=== PATIENT | male | born 1995 | race African-American/Black ===

== ENCOUNTER 2017-02-25 18:28 | Emergency (ER) | payer OTHER ==
[~2017-02-25] VITALS: Ht 177.8 cm; Wt 77.1 kg
[2017-02-25] MEDS ORDERED: LACTATED RINGERS 1,000 ML IV ONE ×2 (18:33→19:19)
--- OUTSIDE RECORDS SUMMARY | 2017-02-25 18:36 | XMS REPORT | Continuity of Care Document ---
Author Author [facility] Organization [facility] Address Unknown Phone Unavailable Allergies Active Description Code Type Severity Reaction Onset Reported/Identified Relationship to Patient Clinical Status Yes NO NAME AVAILABLE [id number] DRUG N/A N/A Medications Problems Procedures Results Encounters ACCT No. Visit Date/Time Discharge Status Pt. Type Provider Facility Loc./Unit Complaint [id number] 09/30/2016 10:23:44 2016 23:59:59 [facility] Outpatient [facility] KZXRY [id number] 09/30/2016 10:18:32 2016 23:59:59 [facility] Outpatient [facility] KZOR
[2017-02-25 19:02] LABS: BASOPHILS % (AUTO) 0 % (0-10); EOSINOPHILS % (AUTO) 0 % (0-10); LYMPHOCYTES # (AUTO) 1.2 X 10^3 (1.0-4.0); LYMPHOCYTES % (AUTO) 5 % (12-44); MEAN CORPUSCULAR HEMOGLOBIN 28 PG (25-34); MEAN CORPUSCULAR HGB CONC 34 G/DL (32-36); MEAN CORPUSCULAR VOLUME 82 FL (80-99); MEAN PLATELET VOLUME 10.8 FL (7.4-10.4); MONOCYTES % (AUTO) 8 % (0-12); NEUTROPHILS # (AUTO) 21.1 X 10^3 (1.8-7.8); NEUTROPHILS % (AUTO) 87 % (42-75); PLATELET COUNT 248 10^3/uL (130-400); RED BLOOD COUNT 5.41 10^6/uL (4.35-5.85); RED CELL DISTRIBUTION WIDTH 12.7 % (10.0-14.5); WHITE BLOOD COUNT 24.3 10^3/uL (4.3-11.0)
--- NOTE | 2017-02-25 19:19 | ED General ---
General Chief Complaint: General Problems/Pain Stated Complaint: DEHYDRATED Nursing Triage Note: c/o persistant cramping. Onset while playing football today. Drank 3-4 16 oz sports drinks but continued to cramp and shake. Athletic staff put ice on patient to cool him down. Minor shaking noted on ER arrival. Awake, alert, and active. Nursing Sepsis Screen: No Definite Risk Source of Information: Patient Exam Limitations: No Limitations History of Present Illness Time Seen by Provider: 18:32 Initial Comments This 21-year-old young man presents to the emergency room via EMS from a college football game where he developed fairly sudden and intense diffuse muscle cramping and lightheadedness. He denies any other recent signs or symptoms of illness such as fever, cough, shortness of breath, vomiting, diarrhea, etc. He aggressively hydrated with sports drinks and water upon onset of symptoms but continued to have cramps, shaking, and ill feeling. He was also iced down by training staff. Fluids were initiated by EMS. By the time he arrived to the emergency room he was actually hypothermic with a tympanic temperature of 94.0F. He was fairly intensely shivering. He is -[place] but denies any known family or personal history of sickle cell disease or trait. Allergies and Home Medications Allergies Coded Allergies: No Known Drug Allergies (Unverified , 02/25/17) Constitutional: see HPI EENTM: no symptoms reported Respiratory: no symptoms reported Cardiovascular: no symptoms reported Gastrointestinal: no symptoms reported Genitourinary: no symptoms reported Musculoskeletal: see HPI Skin: no symptoms reported Psychiatric/Neurological: No Symptoms Reported Hematologic/Lymphatic: No Symptoms Reported Immunological/Allergic: no symptoms reported Past Lhrycwg-Tzgiei-[id number] Hx Patient Social History Alcohol Use: Denies Use Recreational Drug Use: No Smoking Status: Never a Smoker Recent Foreign Travel: No Contact w/Someone Who Travel: No Recent Infectious Disease Expo: No Surgeries History of Surgeries: No Respiratory History of Respiratory Disorde: No Cardiovascular History of Cardiac Disorders: No Neurological History of Neurological Disord: No Genitourinary History of Genitourinary Disor: No Gastrointestinal History of Gastrointestinal Di: No Musculoskeletal History of Musculoskeletal Dis: No Endocrine History of Endocrine Disorders: No HEENT History of HEENT Disorders: No Cancer History of Cancer: No Psychosocial History of Psychiatric Problem: No Integumentary History of Skin or Integumenta: No Blood Transfusions History of Blood Disorders: No Adverse Reaction to a Blood Tr: No Physical Exam Vital Signs Vital Sign - Last 12Hours 02/25/17 18:42 Temp 98.1 Pulse 101 Resp 20 B/P (MAP) 174/89 O2 Delivery Room Air Capillary Refill : Less Than 3 Seconds General Appearance: WD/WN, Mild Distress (shivering, cramping) HEENT: PERRL/EOMI, Normal ENT Inspection, Pharynx Normal Neck: Normal Inspection Respiratory: Lungs Clear, Normal Breath Sounds, No Accessory Muscle Use, No Respiratory Distress Cardiovascular: Regular Rate, Rhythm, No Edema, No Murmur Gastrointestinal: Normal Bowel Sounds, Non Tender, Soft Extremity: Normal Inspection, No Pedal Edema Neurologic/Psychiatric: Alert, Oriented x3, No Motor/Sensory Deficits, Normal Mood/Affect, 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 Skin: Normal Color, Warm/Dry Progress/Results/Core Measures Results/Orders Lab Results Laboratory Tests Test 02/25/17 18:49 02/25/17 19:39 Range/Units White Blood Count 24.3 H 4.3-11.0 10^3/uL Red Blood Count 5.41 4.35-5.85 10^6/uL Hemoglobin 15.1 13.3-17.7 G/DL Hematocrit 44 40-54 % Mean Corpuscular Volume 82 80-99 FL Mean Corpuscular Hemoglobin 28 25-34 PG Mean Corpuscular Hemoglobin Concent 34 32-36 G/DL Red Cell Distribution Width 12.7 10.0-14.5 % Platelet Count 248 130-400 10^3/uL Mean Platelet Volume 10.8 H 7.4-10.4 FL Neutrophils (%) (Auto) 87 H 42-75 % Lymphocytes (%) (Auto) 5 L 12-44 % Monocytes (%) (Auto) 8 0-12 % Eosinophils (%) (Auto) 0 0-10 % Basophils (%) (Auto) 0 0-10 % Neutrophils # (Auto) 21.1 H 1.8-7.8 X 10^3 Lymphocytes # (Auto) 1.2 1.0-4.0 X 10^3 Monocytes # (Auto) 2.0 H 0.0-1.0 X 10^3 Eosinophils # (Auto) 0.0 0.0-0.3 10^3/uL Basophils # (Auto) 0.0 0.0-0.1 10^3/uL Neutrophils % (Manual) 87 % Lymphocytes % (Manual) 6 % Monocytes % (Manual) 7 % Blood Morphology Comment NORMAL Sodium Level 136 135-145 MMOL/L Potassium Level 4.5 3.6-5.0 MMOL/L Chloride Level 102 98-107 MMOL/L Carbon Dioxide Level 19 L 21-32 MMOL/L Anion Gap 15 H 5-14 MMOL/L Blood Urea Nitrogen 17 7-18 MG/DL Creatinine 1.72 H 0.60-1.30 MG/DL Estimat Glomerular Filtration Rate 51 BUN/Creatinine Ratio 10 Glucose Level 67 L 70-105 MG/DL Calcium Level 9.3 8.5-10.1 MG/DL Magnesium Level 2.0 1.8-2.4 MG/DL Total Bilirubin 0.5 0.1-1.0 MG/DL Aspartate Amino Transf (AST/SGOT) 27 5-34 U/L Alanine Aminotransferase (ALT/SGPT) 17 0-55 U/L Alkaline Phosphatase 84 40-136 U/L Total Creatine Kinase 868 H 30-200 U/L Total Protein 7.0 6.4-8.2 GM/DL Albumin 4.1 3.2-4.5 GM/DL Urine Color YELLOW Urine Clarity CLEAR Urine pH 5 5-9 Urine Specific Basile 1.015 L 1.016-1.022 Urine Protein 2+ H NEGATIVE Urine Glucose (UA) NEGATIVE NEGATIVE Urine Ketones NEGATIVE NEGATIVE Urine Nitrite NEGATIVE NEGATIVE Urine Bilirubin NEGATIVE NEGATIVE Urine Urobilinogen NORMAL NORMAL MG/DL Urine Leukocyte Esterase 1+ H NEGATIVE Urine RBC (Auto) 1+ H NEGATIVE Urine RBC NONE /HPF Urine WBC 10-25 H /HPF Urine Squamous Epithelial Cells NONE /HPF Urine Crystals NONE /LPF Urine Bacteria TRACE /HPF Urine Casts PRESENT /LPF Urine Hyaline Casts 2-5 H /LPF Urine Mucus MODERATE H /LPF Urine Culture Indicated NO My Orders Orders - EULA IBRAHIM MD Cbc With Automated Diff (02/25/17 18:33) Comprehensive Metabolic Panel (02/25/17 18:33) Magnesium (02/25/17 18:33) Ua Culture If Indicated (02/25/17 18:33) Monitor-Rhythm Ecg Trace Only (02/25/17 18:33) Creatine Kinase (02/25/17 18:33) Saline Lock/Iv-Start (02/25/17 18:33) Lactated Ringers (Lr 1000 Ml Iv Solution (02/25/17 18:33) Manual Differential (02/25/17 18:49) Lactated Ringers (Lr 1000 Ml Iv Solution (02/25/17 19:19) Medications Given in ED Current Medications Medications Dose Ordered Sig/Niurka Route Start Time Stop Time Status Last Admin Dose Admin Lactated Ringer's 1,000 ml @ 0 mls/hr Q0M ONCE IV 02/25/17 18:33 02/25/17 18:36 DC 02/25/17 18:40 0 MLS/HR Lactated Ringer's 1,000 ml @ 0 mls/hr Q0M ONCE IV 02/25/17 19:19 02/25/17 19:21 DC 02/25/17 19:24 0 MLS/HR Vital Signs/I&O Vital Sign - Last 12Hours 02/25/17 02/25/17 18:42 19:33 Temp 98.1 96.1 Pulse 101 Resp 20 B/P (MAP) 174/89 O2 Delivery Room Air Intake and Output 02/26/17 00:00 Intake Total 1250 ml Balance 1250 ml Blood Pressure Mean: 117 Progress Note #1: Time: 17:00 Progress Note Patient was covered with warm blankets and his IV fluids were switched out with warm LR. Labs were ordered. Shivering was improving. water trainer is here helping him stretch out his cramps. Progress Note #2: Time: 19:24 Progress Note Patient is feeling markedly improved. He is no longer shivering. A second liter of LR is being ordered as patient has not yet produced any urine. Manual differential to screen for sickle cells is pending. Chemistry is still pending as well. Progress Note #3: Time: 19:45 Progress Note Patient is doing well. He was able to produce urine and ambulated to the bathroom without difficulty. Manual differential showed no evidence of sickle cell. Discharge instructions were reviewed with patient and coaching staff. Departure Impression Impression: Primary Impression: Rhabdomyolysis Qualified Codes: M62.82 - Rhabdomyolysis Additional Impressions: Heat exhaustion Qualified Codes: T67.5XXA - Heat exhaustion, unspecified, initial encounter Muscle cramps Hypothermia Qualified Codes: T68.XXXA - Hypothermia, initial encounter Leukocytosis Qualified Codes: D72.829 - Elevated white blood cell count, unspecified Disposition: HOME, SELF-CARE Condition: Improved Departure-Patient Inst. Referrals: NO,LOCAL PHYSICIAN (PCP/Family) Primary Care Physician Patient Instructions: Rhabdomyolysis Add. Discharge Instructions: Eat a well-balanced diet through the weekend and drink plenty of clear liquids. Avoid excessive protein consumption such as protein supplements until your labs are checked. Follow-up with a medical provider on Monday for repeat labs. Labs to be checked should include BMP, CBC, and creatinine kinase. Return to ER if symptoms worsen. No strenuous activity until released by a physician. Light training such as easy jogging or stationary bike is acceptable if tolerated. Complete rest from training until labs return is preferred. All discharge instructions reviewed with patient and/or family. Voiced understanding. Work/School Note: School/Childcare Release Date Seen in the Emergency Department: Feb 25, 2017 Return to School: Feb 27, 2017 Restrictions: No Sports-Until Released Other Restrictions Listed Below: Light training is permitted. No strenuous activity until released. EULA IBRAHIM MD Feb 25, 2017 7:19 pm
[2017-02-25 19:23] LABS: ALBUMIN 4.1 GM/DL (3.2-4.5); BILIRUBIN,TOTAL 0.5 MG/DL (0.1-1.0); CALCIUM 9.3 MG/DL (8.5-10.1); CREATININE SERUM 1.72 MG/DL (0.60-1.30); POTASSIUM 4.5 MMOL/L (3.6-5.0)
[2017-02-25 19:28] LABS: LYMPHOCYTES % (MANUAL) 6 %; NEUTROPHILS % (MANUAL) 87 %
[2017-02-25 19:47] LABS: BILIRUBIN,URINE NEGATIVE (NEGATIVE); KETONES,URINE NEGATIVE (NEGATIVE); LEUKOCYTE ESTERASE ,URINE 1+ (NEGATIVE); NITRITE,URINE NEGATIVE (NEGATIVE); PH,URINE 5 (5-9); PROTEIN,URINE 2+ (NEGATIVE); UROBILINOGEN,URINE NORMAL (NORMAL)
[2017-02-25 20:00] VITALS: BP 153/94
== END 2017-02-25 20:00 | disposition home or self-care (01) ==
LOC: ER 18:32
DX: T67.5XXA Heat exhaustion, unspecified, initial encounter (principal); T68.XXXA Hypothermia, initial encounter; R25.2 Cramp and spasm; D72.829 Elevated white blood cell count, unspecified; M62.82 Rhabdomyolysis; X30.XXXA Exposure to excessive natural heat, initial encounter; Y93.61 Activity, american tackle football
CPT/HCPCS: 36415; 80053; 81000; 82550; 83735; 85007; 85027; 93041; 96360